=== PATIENT | female | born 1960 | race Caucasian/White ===

== ENCOUNTER 2016-09-21 16:37 | Inpatient (IN) | payer OTHER ==
[~2016-09-21] VITALS: Ht 144.8 cm; Wt 57.6 kg
--- NOTE | 2016-09-21 16:49 | NUR ---
PT TO ED FOR L SIDED CHEST PAIN THAT BEGAN TODAY, REPORTS HX OF [place] APPROX 8 YEARS AGO. REPORTING CHEST PAIN RADIATES FROM L CHEST INTO ARM. DENIES SOB, BAUM, UNABLE TO IDENTIFY IF ANYTHING MAKES PAIN BETTER OR WORSE.
--- NOTE | 2016-09-21 16:53 | NUR ---
PT TO [facility] RM 17 FABY ELLIS INTO EVALUATE PATIENT
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
--- NOTE | 2016-09-21 17:30 | NUR ---
IV ACCESS ESTABLISHED, #20 RW LABS DRAWN/SENT (SST X 2, LAVENDAR, BLUE X 2 TOP TUBES SENT)
--- NOTE | 2016-09-21 17:39 | NUR ---
PT MEDICATED WITH ASA 243 MG (ALREADY TOOK 81 MG ASA AT HOME) ALSO MEDICATED WITH SL NITRO X 1, B/P 155/71, HR 86 AND PAIN LEVEL 5/10 PRIOR TO RECEIVING SAME. JUANITA FROM RT AT BEDSIDE FOR NEB TREATMENT.
[2016-09-21 17:45] LABS: ABSOLUTE BASOPHIL COUNT 0.2 /CUMM (0.0-0.2); ABSOLUTE EOSINOPHIL COUNT 0.2 /CUMM (0.0-0.7); ABSOLUTE LYMPH COUNT 2.8 /CUMM (1.2-3.4); ABSOLUTE MONOCYTE COUNT 0.6 /CUMM (0.10-0.60); BASOPHIL % 1.3 % (0.0-2.0); GRANULOCYTE % 67.6 % (42.2-75.2); HEMATOCRIT 35.5 % (37-47); MEAN CORPUSCULAR HGB 30.3 PG (27.0-31.0); MEAN CORPUSCULAR HGB CONC 33.6 G/DL (33.0-37.0); MEAN CORPUSCULAR VOLUME 90.2 FL (81.0-99.0); MEAN PLATELET VOLUME 7.4 FL (7.4-10.4); PLATELET COUNT 334 /CUMM (130-400); RBC DISTRIBUTION WIDTH 12.7 % (11.5-14.5); RED BLOOD CELL CT 3.94 /CUMM (4.20-5.40); WHITE BLOOD CELL COUNT 11.8 /CUMM (4.8-10.8)
[2016-09-21 18:06] LABS: PT 11.1 SEC (9.4-12.5); PTT 33 SEC (25-37)
--- NOTE | 2016-09-21 18:27 | NUR ---
FABY ELLIS AT BEDSIDE
[2016-09-21] MEDS ORDERED: LOVAZA1 G1 PO (18:30)
[2016-09-21] MEDS ORDERED: ASPIRIN EC81 M1 PO (18:30)
[2016-09-21] MEDS ORDERED: FLUOXETINE HCL40 M1 PO (18:30)
[2016-09-21] MEDS ORDERED: DULOXETINE HCL30 MG PO (18:31)
[2016-09-21] MEDS ORDERED: ATORVASTATIN CA40 M1 PO (18:31)
[2016-09-21] MEDS ORDERED: MINIPRESS5 MG PO (18:32)
[2016-09-21] MEDS ORDERED: HYDROXYZINE PA100 M1 PO (18:32)
[2016-09-21] MEDS ORDERED: GABAPENTIN300 M2 PO (18:32)
[2016-09-21] MEDS ORDERED: PREMPRO 0.625-1 EAC1 PO (18:32)
[2016-09-21] MEDS ORDERED: SUBOXONE 4 MG-1 EACH SL (18:33)
[2016-09-21] MEDS ORDERED: NICOTINE GUM4 MG PO (18:33)
[2016-09-21] MEDS ORDERED: VITAMIN B-121000 MC3 PO (18:34)
[2016-09-21] MEDS ORDERED: ALIVE WOMEN'S1 EAC1 PO (18:34)
[2016-09-21] MEDS ORDERED: VITAMIN D31000 UNI1 PO (18:34)
[2016-09-21] MEDS ORDERED: ANTIOXIDANT SO1 EAC1 PO (18:35)
[2016-09-21] MEDS ORDERED: MELATONIN5 M5 PO (18:35)
--- NOTE | 2016-09-21 18:38 | NUR ---
PT MEDICATED WITH 2ND SL NITRO PER ORDERS FABY ELLIS PAIN LEVEL 5/10, HR 92, B/P 140/65 PRIOR TO RECEIVING NITRO
--- NOTE | 2016-09-21 18:43 | NUR ---
HEART HEALTHY TRAY ORDERED AT THIS TIME, SPOKE WITH KLEBER IN [facility].
--- NOTE | 2016-09-21 18:46 | RADIOLOGY REPORT ---
EXAMINATION: CHEST 1 VIEW CLINICAL INFORMATION: Cough, chest pain. COMPARISON: None. TECHNIQUE: An AP view of the chest is provided. FINDINGS: The cardiac silhouette is not enlarged. The mediastinal and hilar contours are unremarkable. There are neither pleural effusions nor pneumothoraces. There is mild atelectasis at the left lung base. There are no consolidations. Partially visualized is cervical spine fusion hardware. The osseous structures are otherwise unremarkable. IMPRESSION: No consolidations. Mild atelectasis at the left lung base.
--- NOTE | 2016-09-21 19:20 | NUR ---
PT PROVIDED WITH MEAL TRAY PER OK BY FABY
--- NOTE | 2016-09-21 19:47 | NUR ---
BED ASSIGNMENT 185-2
--- NOTE | 2016-09-21 20:08 | History & Physical ---
General Information and HPI Allergies/Medications Allergies: Coded Allergies: No Known Allergies (09/21/16) Home Med list Aspirin (Ecotrin*) 81 MG TABLET.DR 1 TAB PO DAILY HEART/BLOOD (Reported) Atorvastatin Calcium 40 MG TABLET 1 TAB PO QAM CHOLESTEROL (Reported) Beta-Carotene(A) W-C & E/Min (Antioxidant Softgel) 1 EACH CAPSULE 1 CAP PO DAILY SUPPLEMENT (Reported) Buprenorphine HCl/Naloxone HCl (Suboxone 4 MG-1 MG Sl Film) 4 MG-1 MG FILM 1 STR SL BID MENTAL HEALTH/CHRONIC PAIN (Reported) Cholecalciferol (Vitamin D3) (Vitamin D3) (Unknown Strength) CAPSULE (Unknown Dose) PO DAILY SUPPLEMENT (Reported) Cyanocobalamin (Vitamin B-12) (Unknown Strength) TABLET (Unknown Dose) PO DAILY SUPPLEMENT (Reported) Duloxetine HCl 30 MG CAPSULE.DR 90 MG PO DAILY MENTAL HEALTH/NERVE PAIN ( Reported) Estrogen,Con/M-Progest Acet (Prempro 0.625-2.5 MG Tablet) 0.625 MG-2.5 MG TABLET 1 TAB PO DAILY HRT (Reported) Fluoxetine HCl 40 MG CAPSULE 1 CAP PO QAM DEPRESSION/ANXIETY (Reported) Gabapentin 300 MG CAPSULE 2 CAP PO QHS PTSD (Reported) Hydroxyzine Pamoate 100 MG CAPSULE 1 CAP PO QPM SLEEP (Reported) Melatonin (Unknown Strength) CAPSULE (Unknown Dose) PO DAILY SUPPLEMENT ( Reported) Multivit/Iron/FA/K/Herb No.244 (Alive Women's Energy Mv Tablet) 18 MG IRON-400 MCG-80 MCG TABLET 1 TAB PO DAILY SUPPLEMENT (Reported) Nicotine Polacrilex (Nicotine Gum) 4 MG GUM 1 GUM PO PRN SMOKING CESSATION ( Reported) Elida-3 Acid Ethyl Esters (Lovaza) 1 GRAM CAPSULE 2 CAP PO BID CHOLESTEROL ( Reported) Prazosin HCl (Minipress) 5 MG CAPSULE 1 CAP PO QPM NIGHTMARES (Reported) Past History Travel History Traveled to [place] past 21 day No Medical History Cardiovascular: myocardial infarction Surgical History Surgical History: non-contributory Past Family/Social History Psychosocial History ETOH Use: denies use Illicit Drug Use: denies illicit drug use Core Measures/Miscellaneous Severe Sepsis Severe Sepsis Present: No Septic Shock Septic Shock Present: No
--- NOTE | 2016-09-21 20:42 | NUR ---
HOUSE STAFF AT BEDSIDE
--- NOTE | 2016-09-21 21:14 | NUR ---
REPORT GIVEN TO SAMIR Blackmon TELE
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
[2016-09-21 21:57] VITALS: BP 130/70
[2016-09-22 01:44] LABS: PTT 46 SEC (25-37)
--- NOTE | 2016-09-22 05:57 | PN- Housestaff ---
Subjective Follow-up For: - Unstable Angina Tele-Events Since Last Visit: Normal sinus rhythm heart rate 63-83, no overnight events. Subjective: The patient was comfortable, but appeared very tearful. Vitals were stable overnight. Did not have any other complaints. She was kept nothing by mouth in anticipation of a cardiac cath. After discussing with Dr. Watson, diet has been advanced. Discussed with nuclear imaging, discontinued beta blockers, and caffeine. Nothing by mouth after midnight, for a possible stress nuclear imaging. Review of Systems Constitutional: Reports: see HPI. Objective Last 24 Hrs of Vital Signs/I&O Vital Signs Date Time Temp Pulse Resp B/P Pulse O2 O2 Flow FiO2 Ox Delivery Rate 09/21 215 98.3 80 20 130/70 96 Room Air 09/21 1847 96 20 127/61 93 Room Air 09/21 1838 97.5 92 20 140/65 94 Room Air 09/21 1745 96 20 146/70 98 Aerosol Mask 09/21 1740 86 20 155/71 98 Room Air 09/21 1739 94 09/21 1731 Room Air Room Air 09/21 1647 98.0 91 14 162/84 95 Room Air Intake & Output 09/22 0800 09/22 0000 09/21 1600 Intake Total 210 Output Total Balance 210 Intake, IV 30 Intake, Oral 180 Patient 127 lb Weight Physical Exam General Appearance: No Acute Distress Other Physical Findings: General Exam: AAOx3, No acute distress, Skin: No rashes, no breakdown HEENT: PERRLA, EOMI Neck: Supple, No JVD No cervical lymphadenopathy CVS: Reg Rate, Normal S1,S2, No MGR Resp: Normal air entry, no ronchi/rales Abdomen: Soft, No tenderness, Normal Bowel Sounds Neuro: Normal Speech, Strength 5/5 b/l x 4 extremities, Sensation intact, CN III -XII NL, Reflexes 2+ Extremities: No cyanosis, pedal edema Current Medications: Current Medications Sig/Miguel Start time Last Medication Dose Route Stop Time Status Admin Acetaminophen 650 MG Q6P PRN 09/21 2029 AC 09/21 PO 215 Albuterol Sulfate 3 ML ONCE ONE 09/21 1744 DC 09/21 INH 09/21 Aspirin 0 .STK-MED ONE 09/21 1738 DC PO Aspirin 243 MG ONCE ONE 09/21 1714 DC 09/21 PO 03/20 1716 1740 Aspirin Buffered 81 MG DAILY 09/22 1000 AC PO Atorvastatin Calcium 40 MG 1700 09/22 1700 AC PO Diphenhydramine HCl 25 MG Q6P PRN 09/21 2029 AC IV Heparin Sodium 1,700 UNIT ONCE ONE 09/22 0300 DC 09/22 (Porcine) IV 09/22 030 0245 Heparin Sodium 0 .STK-MED ONE 09/21 192 DC (Porcine) .ROUTE Heparin Sodium 4,000 UNIT ONCE ONE 09/21 184 DC 09/21 (Porcine) IV 09/21 184 1944 Heparin Sodium/ 0 .STK-MED ONE 09/21 192 DC Dextrose IV Heparin Sodium/ 25,000 UNIT Q24H 09/21 184 AC 09/21 Dextrose IV 194 Dextrose/Water 500 ML Hydroxyzine HCl 100 MG AT BEDTIME 09/21 2199 AC 09/22 PO 0226 Ipratropium Bruin 2.5 ML ONCE ONE 09/21 1745 DC 09/21 INH 09/21 1746 1739 Metoprolol Tartrate 25 MG BID 09/21 2199 AC 09/21 PO 2158 Morphine Sulfate 2 MG Q4P PRN 09/21 2030 AC 09/22 IV 0244 Nitroglycerin 1 GM Q6P PRN 09/21 2029 AC TOP Nitroglycerin 0.4 MG ONCE ONE 09/21 1830 DC 09/21 SL 09/21 183 1838 Nitroglycerin 0 .STK-MED ONE 09/21 1739 DC SL Nitroglycerin 0.4 MG ONCE ONE 09/21 1715 DC 09/21 SL 09/21 1716 1740 Oxycodone HCl 5 MG Q6P PRN 09/21 2029 AC PO Prochlorperazine 10 MG Q6P PRN 09/21 2030 AC IV Last 24 Hrs of Lab/Perico Results Last 24 Hrs of Labs/Mics: Laboratory Tests 09/22/16 0100: Troponin I < 0.01, APTT 46 H 09/21/16 2245: Urine Opiates Screen < 100.00, Methadone Screen 90, Barbiturate Screen < 60, Ur Phencyclidine Scrn < 6.00, Amphetamines Screen < 100, U Benzodiazepines Scrn < 85, Urine Cocaine Screen < 50, Urine Cannabis Screen < 5.00, Urinalysis LIGHT H , Urine Color YEL, Urine Clarity HAZY H, Urine pH 7.0, Ur Specific [place] 1.015, Urine Protein NEG, Urine Ketones NEG, Urine Nitrite NEG, Urine Bilirubin NEG, Urine Urobilinogen 0.2, Ur Leukocyte Esterase NEG, Ur Microscopic SEDIMENT EXAMINED, Urine RBC 5-10 H, Urine WBC 1-3 H, Ur Epithelial Cells FEW, Urine Bacteria MOD H, Urine Mucus FEW, Urine Hemoglobin TRACE-LYSED, Urine Glucose NEG 09/21/16 1725: Anion Gap 10, Estimated GFR > 60, BUN/Creatinine Ratio 20.0, Glucose 91, Calcium 9.5, Total Bilirubin 0.3, AST 31, ALT 44, Alkaline Phosphatase 95, Troponin I < 0.01, Total Protein 7.0, Albumin 4.2, Globulin 2.8, Albumin/Globulin Ratio 1.5, Cholesterol 115, PT 11.1, INR 1.06, APTT 33, D-Dimer < 200, CBC w Diff NO MAN DIFF REQ, RBC 3.94 L, MCV 90.2, MCH 30.3, RDW 12.7, MPV 7.4, Gran % 67.6, Lymphocytes % 23.9, Monocytes % 5.2, Eosinophils % 2.0, Basophils % 1.3, Absolute Granulocytes 8.0 H, Absolute Lymphocytes 2.8, Absolute Monocytes 0.6, Absolute Eosinophils 0.2, Absolute Basophils 0.2, PUBS MCHC 33.6 Assessment/Plan Assessment: Ms Sutherland is a 56-year-old woman who is a known smoker, with a history of coronary artery disease (myocardial infarction status post stent-type unknown), dyslipidemia is being evaluated for chest pain 1 day. At the time of admission, vitals-temperature 98.5, pulse rate 70, respiratory rate 18, blood pressure 120/74, pulse ox 95% on room air. Lab findings indicated WBC 11.8, hemoglobin 11.9, hematocrit 35.5. Electrolytes-within normal limits sodium 137, potassium 4.1, renal function-normal BUN 16, serum creatinine 0.8. Cardiac enzymes-troponins I 3 less than 0.01. Urine toxicology screen-negative. EKG-did not reveal any ST-T wave changes. Admission diagnosis: #1 acute coronary syndrome Below is the problem list and plan: #1 acute coronary syndrome-unstable angina. No EKG changes. Cardiac enzymes negative. Discontinue intravenous heparin, as the patient did not have any EKG changes or abnormal cardiac enzymes. As per the terrazzo tile maker, the patient might benefit from a cardiac stress test (likely with radioisotope). Continue nitroglycerin patch. Aspirin and a beta jacinto. Follow echocardiogram. The patient's terrazzo tile maker has been consulted for records. Hold beta jacinto overnight before the stress test. No caffeinated products. 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 Start duloxetine and Suboxone. #3 smoking cessation-discontinue nitroglycerin patch at this time. Problem List: 1. Unstable angina Pain Ratin Pain Location: Back Pain Goal: Pain 4 or less Pain Plan: Morphine Tomorrow's Labs & Rationales: CBC-to monitor for leukocytosis.
[2016-09-22 08:00] VITALS: BP 120/74
[2016-09-22 08:58] LABS: ABSOLUTE BASOPHIL COUNT 0 /CUMM (0.0-0.2); ABSOLUTE EOSINOPHIL COUNT 0.3 /CUMM (0.0-0.7); ABSOLUTE GRANULOCYTE CT 4.9 /CUMM (1.4-6.5); ABSOLUTE LYMPH COUNT 2.7 /CUMM (1.2-3.4); ABSOLUTE MONOCYTE COUNT 0.4 /CUMM (0.10-0.60); BASOPHIL % 0.3 % (0.0-2.0); EOSINOPHIL % 3.2 % (0-5); GRANULOCYTE % 58.8 % (42.2-75.2); HEMATOCRIT 36.2 % (37-47); MEAN CORPUSCULAR HGB 30.1 PG (27.0-31.0); MEAN CORPUSCULAR HGB CONC 33.5 G/DL (33.0-37.0); MEAN PLATELET VOLUME 7.4 FL (7.4-10.4); PLATELET COUNT 308 /CUMM (130-400); RBC DISTRIBUTION WIDTH 13.1 % (11.5-14.5); RED BLOOD CELL CT 4.02 /CUMM (4.20-5.40); WHITE BLOOD CELL COUNT 8.4 /CUMM (4.8-10.8)
[2016-09-22 09:16] LABS: PTT 44 SEC (25-37)
--- NOTE | 2016-09-22 11:06 | NUR ---
PATIENT CONTINUES TO C/O CHEST PAIN WITH BURNING SENSATION TO LEFT LOWER EXTREMITY. MEDICATED WITH ROXICODONE. PATIENT ALSO REPORTED HEADACHE 6/10 AND GIVEN TYLENOL 650MG PO. DENIES NAUSEA. ECHO COMPLETED. REMAINS ALERT AND ORIENTATED X3. DENIES DIZZINESS. INDEPENDENT OOB TO BATHROOM. WILL MONITOR.
--- NOTE | 2016-09-22 13:39 | Cons- Cardiology ---
General Information and HPI Consulting Request Date of Consult: 09/22/16 Requested By: ZE BAUMANN PhD,MAGY Desouza History of Present Illness: Lorna is a 56 year old female with history of dyslipidemia, coronary artery disease s/p AK with stent placement to her RCA 8 years ago and post traumatic stress disorder. She has been under increased stress as of late. Yesterday, this patient noted a severe, burning chest discomfort that radiated toward her jaw that was also associated with a left arm paresthesia. She also noted a right leg discomfort. This discomfort does not have a consistent exertional pattern and continues to some degree while at rest. There was some associated vomiting and diaphoresis. She also reports shortness of breath, although she nevertheless feels that she can keep herself physically active. Finally, this patient also reports episodes of lightheadedness and palpitations. The patient does not have any electocardiographic changes and ruled out for an AK by cardiac enzymes. Allergies/Medications Allergies: Coded Allergies: No Known Allergies (09/21/16) Home Med List: Aspirin (Ecotrin*) 81 MG TABLET.DR 1 TAB PO DAILY HEART/BLOOD (Reported) Atorvastatin Calcium 40 MG TABLET 1 TAB PO QAM CHOLESTEROL (Reported) Beta-Carotene(A) W-C & E/Min (Antioxidant Softgel) 1 EACH CAPSULE 1 CAP PO DAILY SUPPLEMENT (Reported) Buprenorphine HCl/Naloxone HCl (Suboxone 4 MG-1 MG Sl Film) 4 MG-1 MG FILM 1 STR SL BID MENTAL HEALTH/CHRONIC PAIN (Reported) Cholecalciferol (Vitamin D3) (Vitamin D3) (Unknown Strength) CAPSULE (Unknown Dose) PO DAILY SUPPLEMENT (Reported) Cyanocobalamin (Vitamin B-12) (Unknown Strength) TABLET (Unknown Dose) PO DAILY SUPPLEMENT (Reported) Duloxetine HCl 30 MG CAPSULE.DR 90 MG PO DAILY MENTAL HEALTH/NERVE PAIN ( Reported) Estrogen,Con/M-Progest Acet (Prempro 0.625-2.5 MG Tablet) 0.625 MG-2.5 MG TABLET 1 TAB PO DAILY HRT (Reported) Fluoxetine HCl 40 MG CAPSULE 1 CAP PO QAM DEPRESSION/ANXIETY (Reported) Gabapentin 300 MG CAPSULE 2 CAP PO QHS PTSD (Reported) Hydroxyzine Pamoate 100 MG CAPSULE 1 CAP PO QPM SLEEP (Reported) Melatonin (Unknown Strength) CAPSULE (Unknown Dose) PO DAILY SUPPLEMENT ( Reported) Multivit/Iron/FA/K/Herb No.244 (Alive Women's Energy Mv Tablet) 18 MG IRON-400 MCG-80 MCG TABLET 1 TAB PO DAILY SUPPLEMENT (Reported) Nicotine Polacrilex (Nicotine Gum) 4 MG GUM 1 GUM PO PRN SMOKING CESSATION ( Reported) [place]-3 Acid Ethyl Esters (Lovaza) 1 GRAM CAPSULE 2 CAP PO BID CHOLESTEROL ( Reported) Prazosin HCl (Minipress) 5 MG CAPSULE 1 CAP PO QPM NIGHTMARES (Reported) Review of Systems Review of Systems: stress and anxiety Past History Travel History Traveled to [place] past 21 day No Medical History Blood Transfusion Hx: No Neurological: NONE EENT: NONE Cardiovascular: CAD (s/p stent to RCA), hyperlipidemia, myocardial infarction, STENTS Respiratory: NONE Gastrointestinal: NONE Hepatic: NONE Renal: NONE Musculoskeletal: arthritis Psychiatric: anxiety, insomnia, PTSD Endocrine: NONE Blood Disorders: NONE Cancer(s): NONE 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 Father: [place] in 30's Mother: in 60's/ COPD Psychosocial History Where Do You Live? Home Services at Home: None Smoking Status: Current Everyday Smoker (1ppd) ETOH Use: denies use, history of alcohol abuse Illicit Drug Use: denies illicit drug use, history of opiate abuse Functional Ability ADLs Independent: dressing, eating, toileting, bathing. Ambulation: independent IADLs Independent: shopping, housework, finances, food prep, telephone, transportation , medication admin. Exam & Diagnostic Data Vital Signs and I&O Vital Signs Date Time Temp Pulse Resp B/P Pulse O2 O2 Flow FiO2 Ox Delivery Rate 09/22 1000 81 140/70 09/22 0800 98.5 70 18 120/74 95 Room Air 09/21 2157 98.3 80 20 130/70 96 Room Air 09/21 1847 96 20 127/61 93 Room Air 09/21 1838 97.5 92 20 140/65 94 Room Air 09/21 1745 96 20 146/70 98 Aerosol Mask 09/21 1740 86 20 155/71 98 Room Air 09/21 1739 94 09/21 1731 Room Air Room Air 09/21 1647 98.0 91 14 162/84 95 Room Air Intake & Output 09/22 1600 09/22 0800 09/22 0000 09/21 1600 09/21 0800 09/21 0000 Intake Total 150.8 210 Output Total Balance 150.8 210 Intake, IV 100.8 30 Intake, Oral 50 180 Patient 127 lb Weight Physical Exam: General: WD/ WN female in NAD; alert and oriented x 3 HEENT: NC/AT, PERRL, EOMI, clear oropharynx Neck: no JVD, no carotid bruit Heart: RRR without murmur Lungs: no crackles or wheezing with upper airway congestion Abdomen: soft, NT, +ve bowel sounds Extremties: no edema Diagnostic Data EKG Results sinus rhythm Assessment/Plan Assessment/Plan * This patient has experienced prolonged and somewhat atypical chest discomfort without electrocardiographic changes or a rise in cardiac enzymes. In consideration of her prior history of coronary artery disease and continued risk factors we will risk stratify this patient with a treadmill nuclear stress test. We will also obtain an echocardiogram. * Continue aspirin, Atorvastatin, Metoprolol and prazosin. Heparin can be stopped. Discontinue nicotine. Continue NTG paste for now. * I suspect that the patient's shortness of breath is due to mild COPD related smoking. Consult Acknowledgment - Thank you for your consult request.
[2016-09-22] MEDS ORDERED: DULOXETINE HCL60 MG PO (14:32)
--- NOTE | 2016-09-22 14:44 | ECHOCARDIOGRAM REPORT ---
ISAIAH SAMUEL Age: 56 : 1960 Gender: F Exam Date: 09/22/2016 10:02 Exam Location: [address] [facility] Ht (in): 60 Wt (lb): 95 BSA: 1.35 BP: 140 / 70 Ordering Physician: DELMY COYLE MD Referring Physician: DELMY COYLE MD Technologist: Morales Adams [facility] Room Number: 185-1 Indications: CHEST TRAUMA Rhythm: Sinus Technical Quality: Fair FINDINGS Left Ventricle Normal size left ventricle. Normal left ventricular wall thickness. Normal left ventricular wall motion. Normal left ventricular ejection fraction visually estimated at 55%. Abnormal relaxation filling pattern of the left ventricle for age (stage 1 diastolic dysfunction). Right Ventricle Normal right ventricular size and function. Right Atrium Normal right atrial size. Left Atrium Normal left atrial size. Mitral Valve Mild mitral annular calcification. Mitral valve mildly thickened. Trace mitral regurgitation. Aortic Valve Aortic valve not well visualized, grossly normal. No aortic valve stenosis or regurgitation. Tricuspid Valve Structurally normal tricuspid valve. No tricuspid regurgitation. Unable to estimate the right ventricular systolic pressure. Pulmonic Valve Pulmonic valve not well visualized. No pulmonic regurgitation. Pericardium No pericardial effusion. Great Vessels Normal size aortic root. CONCLUSIONS Normal size left ventricle. Normal left ventricular wall thickness. Normal left ventricular wall motion. Normal left ventricular ejection fraction visually estimated at 55%. Abnormal relaxation filling pattern of the left ventricle for age (stage 1 diastolic dysfunction). Normal right ventricular size and function. Normal atrial size. Trace mitral regurgitation. Unable to estimate the right ventricular systolic pressure. Rafa Tracy M.D. (Electronically Signed) Final Date: 22 September 2016 14:43 MEASUREMENTS (Male / Female) Normal Values 2D ECHO LV Diastolic Diameter PLAX 4.5 cm 4.2 - 5.9 / 3.9 - 5.3 cm LV Systolic Diameter PLAX 3.2 cm 2.1 - 4.0 cm LV Fractional Shortening PLAX 28.9 % 25 - 46 % LV Ejection Fraction 2D Teich 55.7 % IVS Diastolic Thickness 0.7 cm LVPW Diastolic Thickness 0.8 cm LV Relative Wall Thickness 0.3 RV Internal Dim ED PLAX 3.1 cm 1.9 - 3.8 cm LVOT Diameter 1.7 cm Aortic Root Diameter 2.8 cm LA Systolic Diameter LX 3.1 cm 3.0 - 4.0 / 2.7 - 3.8 cm DOPPLER MV Peak Velocity 97.9 cm/s MV Peak Gradient 3.8 mmHg MV Mean Velocity 59.1 cm/s MV Mean Gradient 2.0 mmHg Mitral E Point Velocity 65.6 cm/s Mitral A Point Velocity 94.8 cm/s Mitral E to A Ratio 0.7 MV PHT Velocity 96.4 cm/s MV Deceleration [place] 615.0 cm/s MV Pressure Half Time 47.0 ms MV Area PHT 4.7 cm MV Deceleration Time 141.0 ms PV Peak Velocity 81.3 cm/s PV Peak Gradient 2.6 mmHg PV Mean Velocity 58.7 cm/s PV Mean Gradient 2.0 mmHg PV Velocity Time Integral 18.6 cm LV E' Lateral Velocity 13.0 cm/s Mitral E to LV E' Lateral Ratio 5.0 LV E' Septal Velocity 8.4 cm/s Mitral E to LV E' Septal Ratio 7.8
[2016-09-22 15:50] VITALS: BP 118/72
--- NOTE | 2016-09-22 17:10 | Discharge Summary ---
Visit Information Visit Dates Admission Date: 09/21/16 Discharge Date: 09/23/16 Hospital Course Course Attending Physician: ZE BAUMANN PhD,MAGY Desouza Primary Care Physician: ALEXANDER CUNHA Hospital Course: Ms Sutherland is a 56-year-old woman who is a known smoker, with a history of coronary artery disease (myocardial infarction status post stent RCA 2011-type unknown), PTSD dyslipidemia is being evaluated for hest discomfort that radiated to the jaw that was also associated with a left arm paresthesia 1 day. At the time of admission, vitals-temperature 98.5, pulse rate 70, respiratory rate 18, blood pressure 120/74, pulse ox 95% on room air. Lab findings indicated WBC 11.8, hemoglobin 11.9, hematocrit 35.5. Electrolytes-within normal limits sodium 137, potassium 4.1, renal function-normal BUN 16, serum creatinine 0.8. Cardiac enzymes-troponins I 3 less than 0.01. Urine toxicology screen-negative. EKG-did not reveal any ST-T wave changes. Admission diagnosis: #1 Rule out acute coronary syndrome Below is the problem list and plan: #1 acute coronary syndrome-unstable angina. No EKG changes were noted. Cardiac enzymes negative. She was initially started on intravenous heparin which was discontinued after following serial electrocardiograms and cardiac enzymes. She was started on aspirin and Aspirin and a beta jacinto, and statin. Exercise stress test with radioisotope did not reveal any abnormality. Normal left ventricle or motion and ejection fraction. The patient did not have any symptoms, during the stay in the hospital. Vitals remain stable, and did not have any arrhythmias on telemetry. #2 history of anxiety, depression-patient did not have any suicidal ideation or homicidal ideation. She was treated with her home dose of duloxetine and Suboxone. #3 smoking cessation-smoking cessation counseling was undertaken actively. Explained to her the risks involved. Since the patient has long-standing history of smoking, a competent of COPD is suspected. Allergies: Coded Allergies: No Known Allergies (09/21/16) Pertinent Lab Results: RAD - XRY-PORTABLE CHEST XRAY 09/21/16-1703 No consolidations. Mild atelectasis at the left lung base. --- CARD - ECHOCARDIOGRAM 09/22/16-0800 Normal size left ventricle. Normal left ventricular wall thickness. Normal left ventricular wall motion. Normal left ventricular ejection fraction visually estimated at 55%. Abnormal relaxation filling pattern of the left ventricle for age (stage 1 diastolic dysfunction). Normal right ventricular size and function. Normal atrial size. Trace mitral regurgitation. Unable to estimate the right ventricular systolic pressure. EXERCISE STRESS AND RESTING SPECT MYOCARDIAL PERFUSION IMAGING STUDY WITH GATED SPECT IMAGES- Normal exercise stress and resting myocardial perfusion study with normal left ventricular wall motion and ejection fraction. Disposition Summary Disposition Principal Diagnosis: Acute coronary syndrome Additional Diagnosis: Smoking Discharge Disposition: home or self care Discharge Instructions General Discharge Information Code Status: Full Code Patient's Diet: Heart healthy diet Patient's Activity: As tolerated Follow-Up Instructions/Appts: - Please follow-up with your engagement executive within 1-2 weeks of discharge. - Please follow-up with your primary care provider within one to 2 weeks of discharge. Medications at Discharge Discharge Medications: Stop taking the following medications: Nicotine Polacrilex (Nicotine Gum) 4 MG GUM ORAL as needed for SMOKING CESSATION Qty = 170 Continue taking these medications: Aspirin (Ecotrin*) 81 MG TABLET. 1 Tablet ORAL DAILY Comments: Last Taken: 09/23/16 Time: 8 am [place]-3 Acid Ethyl Esters (Lovaza) 1 GRAM CAPSULE 2 Capsule ORAL TWICE DAILY Comments: NOT GIVEN IN HOSPITAL Duloxetine HCl (Duloxetine HCl) 30 MG CAPSULE. 30 Milligram ORAL BEDTIME Qty = 30 Comments: Last Taken: 09/22/16 Time: 9 PM Atorvastatin Calcium (Atorvastatin Calcium) 40 MG TABLET 1 Tablet ORAL Every Morning Qty = 30 Comments: Last Taken: 09/23/16 Time: 5 pm Hydroxyzine Pamoate (Hydroxyzine Pamoate) 100 MG CAPSULE 1 Capsule ORAL Every night Qty = 30 Comments: Last Taken: 09/22/16 Time: 9 PM Prazosin HCl (Minipress) 5 MG CAPSULE 1 Capsule ORAL Every night Qty = 30 Comments: NOT GIVEN IN HOSPITAL Gabapentin (Gabapentin) 300 MG CAPSULE 1 Capsule ORAL TAKE AT BEDTIME Qty = 30 Comments: Last Taken: 09/22/16 Time: 9 PM Estrogen,Con/M-Progest Acet (Prempro 0.625-2.5 MG Tablet) 0.625 MG-2.5 MG TABLET 1 Tablet ORAL DAILY Qty = 28 Comments: NOT GIVEN IN HOSPITAL Buprenorphine HCl/Naloxone HCl (Suboxone 4 MG-1 MG Sl Film) 4 MG-1 MG FILM 1 Strip SUBLINGUAL TWICE DAILY Qty = 56 Comments: Last Taken: 09/23/16 Time: 8 AM Multivit/Iron/FA/K/Herb No.244 (Alive Women's Energy Mv Tablet) 18 MG IRON-400 MCG-80 MCG TABLET 1 Tablet ORAL DAILY Comments: NOT GIVEN IN HOSPITAL Cyanocobalamin (Vitamin B-12) (Unknown Strength) TABLET Unknown Dose ORAL DAILY Comments: NOT GIVEN IN HOSPITAL Cholecalciferol (Vitamin D3) (Vitamin D3) (Unknown Strength) CAPSULE Unknown Dose ORAL DAILY Comments: NOT GIVEN IN HOSPITAL Melatonin (Melatonin) (Unknown Strength) CAPSULE Unknown Dose ORAL DAILY Comments: Last Taken: 09/22/16 Time: 9 PM Beta-Carotene(A) W-C & E/Min (Antioxidant Softgel) 1 EACH CAPSULE 1 Capsule ORAL DAILY Comments: NOT GIVEN IN HOSPITAL Duloxetine HCl (Duloxetine HCl) 60 MG CAPSULE.DR 1 Capsule ORAL DAILY Comments: NOT GIVEN IN HOSPITAL Copies To: ALEXANDER CUNHA
[2016-09-22 20:58] VITALS: BP 142/78
[2016-09-22 22:51] VITALS: BP 102/68
--- NOTE | 2016-09-23 07:10 | PN- Housestaff ---
Subjective Follow-up For: - chest pain Tele-Events Since Last Visit: NSR. No overnight events. Subjective: Pt comfortable. No complaints. She had chest discomfort last night, after she felt more anxious. Discussed with her about the management plan, and she was agreeable. Vitals were stable overnight. She was afebrile. Review of Systems Constitutional: Reports: see HPI. Objective Last 24 Hrs of Vital Signs/I&O Vital Signs Date Time Temp Pulse Resp B/P Pulse O2 O2 Flow FiO2 Ox Delivery Rate 09/22 2251 98.1 66 20 102/68 94 Room Air 09/22 2102 75 142/78 09/22 2057 75 142/78 09/22 1600 92 Room Air 09/22 1550 97.5 62 18 118/72 92 Room Air 09/22 1000 81 140/70 09/22 0800 98.5 70 18 120/74 95 Room Air Intake & Output 09/23 0800 09/23 0000 09/22 1600 Intake Total 680 538 Output Total Balance 680 538 Intake, IV 138 Intake, Oral 680 400 Physical Exam General Appearance: No Acute Distress Skin: No Breakdown HEENT: PERRLA, EOMI Neck: No JVD, No thryomegaly Lymphatic: Cervical nl Cardiovascular: Normal S1, Normal S2 Lungs: Normal Air Movement Abdomen: Soft, No Tenderness Neurological: Normal Speech, Strength at 5/5 X4 Ext, Normal Tone Extremities: No Cyanosis, No Edema Vascular: Pulses Symmetrical Current Medications: Current Medications Sig/Miguel Start time Last Medication Dose Route Stop Time Status Admin Acetaminophen 650 MG .STK-MED ONE 09/22 2056 DC PO 09/22 2057 Acetaminophen 325 MG .STK-MED ONE 09/22 1510 DC PO 09/22 1511 Acetaminophen 325 MG .STK-MED ONE 09/22 1505 DC PO 09/22 1506 Acetaminophen 650 MG .STK-MED ONE 09/22 1101 DC PO 09/22 1102 Acetaminophen 650 MG Q6P PRN 09/21 2030 AC 09/22 PO 210 Aspirin Buffered 81 MG DAILY 09/22 1000 AC 09/22 PO 1000 Atorvastatin Calcium 40 MG 1700 09/22 1700 AC 09/22 PO 1712 Buprenorphine/ 2 TAB 0800 09/23 0800 DC Naloxone SL Buprenorphine/ 2 TAB 0800,09/22 2000 AC 09/22 Naloxone SL 1712 Diphenhydramine HCl 25 MG Q6P PRN 09/21 2029 AC IV Duloxetine HCl 30 MG AT BEDTIME 09/22 2199 AC 09/22 PO 210 Gabapentin 300 MG AT BEDTIME 09/22 2199 AC 09/22 PO 210 Heparin Sodium 3,450 UNIT ONCE ONE 09/22 1030 DC 09/22 (Porcine) IV 09/22 1031 1000 Heparin Sodium/ 25,000 UNIT Q24H 09/21 1845 DC 09/21 Dextrose IV 1944 Dextrose/Water 500 ML Hydroxyzine HCl 100 MG AT BEDTIME 09/21 2199 AC 09/22 PO 210 Melatonin 5 MG AT BEDTIME 09/22 2199 AC 09/22 PO 210 Metoprolol Tartrate 25 MG BID 09/21 2199 DC 09/22 PO 09/23 0000 2102 Morphine Sulfate 2 MG Q4P PRN 09/21 2029 AC 09/23 IV 0656 Nitroglycerin 1 GM Q6P PRN 09/21 2029 AC 09/22 TOP 0613 Oxycodone HCl 5 MG Q6P PRN 09/21 2029 AC 09/22 PO 2102 Patient Medication 1 ED .STK-MED ONE 09/22 1359 [place] Teaching ED 09/22 1400 Prochlorperazine 10 MG Q6P PRN 09/21 2029 AC IV Last 24 Hrs of Lab/Perico Results Last 24 Hrs of Labs/Mics: Laboratory Tests 09/23/16 0630: Sodium Pending, Potassium Pending, Chloride Pending, Carbon Dioxide Pending, Anion Gap Pending, BUN Pending, Creatinine Pending, BUN/Creatinine Ratio Pending , Magnesium Pending, CBC w Diff Pending, WBC Pending, RBC Pending, Hgb Pending, Hct Pending, MCV Pending, MCH Pending, RDW Pending, Plt Count Pending, MPV Pending, PUBS MCHC Pending 09/22/16 1600: APTT Cancelled 09/22/16 0830: Anion Gap 8, Estimated GFR > 60, BUN/Creatinine Ratio 20.0, Magnesium 2.0, Troponin I < 0.01, APTT 44 H, CBC w Diff NO MAN DIFF REQ, RBC 4.02 L, MCV 90.0 , MCH 30.1, RDW 13.1, MPV 7.4, Gran % 58.8, Lymphocytes % 32.5, Monocytes % 5.2, Eosinophils % 3.2, Basophils % 0.3, Absolute Granulocytes 4.9, Absolute Lymphocytes 2.7, Absolute Monocytes 0.4, Absolute Eosinophils 0.3, Absolute Basophils 0, PUBS MCHC 33.5 Assessment/Plan Assessment: Ms Sutherland is a 56-year-old woman who is a known smoker, with a history of coronary artery disease (myocardial infarction status post stent-type unknown), dyslipidemia is being evaluated for chest pain 1 day. Admission diagnosis: #1 acute coronary syndrome Below is the problem list and plan: #1 acute coronary syndrome-unstable angina. No EKG changes. Cardiac enzymes negative. IV heparin has been discontinued. Continue aspirin and beta jacinto( discontinued for the stress test). As per the options trader, the patient might benefit from a cardiac stress test (likely with radioisotope). Continue nitroglycerin patch. Aspirin and a beta jacinto. Follow echocardiogram. The patient's options trader has been consulted for records. #2 history of anxiety, depression-no suicidal ideation or homicidal ideation. Start duloxetine and Suboxone. #3 smoking cessation-discontinue nitroglycerin patch at this time. Problem List: 1. Unstable angina Pain Ratin Pain Location: chest discomfort Pain Goal: Pain 4 or less Pain Plan: tylenol prn Tomorrow's Labs & Rationales: no labs necessary at this time.
[2016-09-23 07:57] VITALS: BP 124/80
[2016-09-23 07:59] LABS: ABSOLUTE BASOPHIL COUNT 0 /CUMM (0.0-0.2); ABSOLUTE EOSINOPHIL COUNT 0.4 /CUMM (0.0-0.7); ABSOLUTE GRANULOCYTE CT 5.7 /CUMM (1.4-6.5); ABSOLUTE LYMPH COUNT 2.7 /CUMM (1.2-3.4); ABSOLUTE MONOCYTE COUNT 0.6 /CUMM (0.10-0.60); BASOPHIL % 0.4 % (0.0-2.0); EOSINOPHIL % 3.9 % (0-5); GRANULOCYTE % 60.2 % (42.2-75.2); MEAN CORPUSCULAR HGB 29.6 PG (27.0-31.0); MEAN CORPUSCULAR HGB CONC 32.5 G/DL (33.0-37.0); MEAN PLATELET VOLUME 7.6 FL (7.4-10.4); PLATELET COUNT 329 /CUMM (130-400); RED BLOOD CELL CT 4.17 /CUMM (4.20-5.40); WHITE BLOOD CELL COUNT 9.4 /CUMM (4.8-10.8)
--- NOTE | 2016-09-23 13:48 | Patient Discharge Instructions ---
Discharge Instructions General Discharge Information You were seen/treated for: - chest pain You had these procedures: - stress test Watch for these problems: - chest pain, shortness of breath. Special Instructions: - Please follow-up with your tobacco stemmer machine within 1-2 weeks of discharge. - Please follow-up with your primary care provider within one to 2 weeks of discharge. Acute Coronary Syndrome Inclusion Criteria At DC or during hospital stay patient has or had the following: ACS DIAGNOSIS No Discharge Core Measures Meds if any: Prescribed or Continued at Discharge Meds if any: NOT Prescribed or Continued at Discharge Congestive Heart Failure Inclusion Criteria At DC or during hospital stay patient has or had the following: CHF DIAGNOSIS No Discharge Core Measures Meds if any: Prescribed or Continued at Discharge Meds if any: NOT Prescribed or Continued at Discharge Cerebrovascular accident Inclusion Criteria At DC or during hospital stay patient has or had the following: CVA/TIA Diagnosis No Discharge Core Measures Meds if any: Prescribed or Continued at Discharge Meds if any: NOT Prescribed or Continued at Discharge Venous thromboembolism Inclusion Criteria VTE Diagnosis No VTE Type NONE VTE Confirmed by (Test) NONE Discharge Core Measures - Per Current guidelines, there needs to be overlap - treatment for the first 5 days of Warfarin therapy. - If discharged on Warfarin prior to 5 days of - overlap therapy, the patient will need to be - assessed for post discharge needs including - *Post discharge parental anticoagulation - *Warfarin and/or parental anticoagulation education - *Follow up date to check INR post discharge At least 5 days overlap therapy as Inpatient No Meds if any: Prescribed or Continued at Discharge Note: Overlap Therapy is Warfarin and Anticoagulant Meds if any: NOT Prescribed or Continued at Discharge
[2016-09-23 15:49] VITALS: BP 130/82
--- NOTE | 2016-09-23 16:30 | NUCLEAR MEDICINE REPORT ---
EXERCISE STRESS AND RESTING SPECT MYOCARDIAL PERFUSION IMAGING STUDY WITH GATED SPECT IMAGES: CLINICAL INDICATION: Atypical chest pain. PROCEDURE: Regional myocardial perfusion was assessed using a 1 day protocol. Stress images were obtained on 09/23/2016 following the intravenous administration of 18.5 mCi Tc 99m Myoview. Stress was performed using the standard Armani protocol, with the patient reaching a peak heart rate of 85% maximal predicted heart rate. Rest images were obtained 09/23/2016 following the intravenous administration of 31.2 mCi Technetium 99m Myoview. Single photon emission tomographic (SPECT) images were obtained. SPECT images were acquired in a 64 x 64 matrix of 64 projections over 180 degrees. These were reconstructed into standard short axis, horizontal and vertical long axis cardiac projections. FINDINGS: The post stress images demonstrate the left ventricular chamber to be normal in size. There is homogeneous distribution of activity in the left ventricular myocardium with no regions of abnormally decreased activity noted. The resting images also demonstrate homogeneous distribution of activity in the left ventricular myocardium, and are not significantly changed from the post stress images. The stress images were obtained using a gated SPECT technique, which permits visualization of wall motion and calculation of the left ventricular ejection fraction. No left ventricular wall motion abnormalities are noted on the stress study. The calculated left ventricular ejection fraction is 74% on the stress study. No previous study is available for comparison. IMPRESSION: Normal exercise stress and resting myocardial perfusion study with normal left ventricular wall motion and ejection fraction.
--- NOTE | 2016-09-23 18:11 | PN- Cardiology ---
Subjective Subjective: Feels improved overall and denies any symptoms at this time. Objective Vital Signs and I&Os Vital Signs Date Time Temp Pulse Resp B/P Pulse O2 O2 Flow FiO2 Ox Delivery Rate 09/23 1549 98.2 77 18 130/82 94 Room Air 09/23 0757 98.0 82 18 124/80 94 Room Air 09/22 2251 98.1 66 20 102/68 94 Room Air 09/22 210 75 142/78 09/22 2057 75 142/78 Intake & Output 09/23 1600 09/23 0800 09/23 0000 09/22 1600 09/22 0800 09/22 0000 Intake Total 240 680 538 150.8 210 Output Total Balance 240 680 538 150.8 210 Intake, IV 138 100.8 30 Intake, Oral 240 680 400 50 180 Patient 127 lb Weight Physical Exam: Well-developed, well-nourished middle-aged female in no acute distress. X Vital signs: See above. Lungs: Mild bilateral inspiratory wheeze and otherwise clear. Heart: S1, S2 with no murmur, gallop, or rub appreciated. PMI fifth ICS at [facility]. Abdomen: Soft, nontender, positive bowel sounds. Extremities: No edema. Current Medications: Current Medications Sig/Miguel Start time Last Medication Dose Route Stop Time Status Admin Acetaminophen 650 MG .STK-MED ONE 09/22 2056 DC PO 09/22 2057 Acetaminophen 650 MG Q6P PRN 09/21 2029 AC 09/23 PO 1700 Aspirin Buffered 81 MG DAILY 09/22 1000 AC 09/23 PO 0759 Atorvastatin Calcium 40 MG 1700 09/22 170 AC 09/23 PO 1657 Buprenorphine/ 2 TAB 0800,09/22 AC 09/23 Naloxone SL 0800 Diphenhydramine HCl 25 MG Q6P PRN 09/21 2029 AC IV Duloxetine HCl 30 MG AT BEDTIME 09/22 2199 AC 09/22 PO 210 Gabapentin 300 MG AT BEDTIME 09/22 2199 AC 09/22 PO 210 Heparin Sodium 5,000 UNIT Q8 09/23 0758 AC 09/23 (Porcine) SC 1457 Hydroxyzine HCl 100 MG AT BEDTIME 09/21 2199 AC 09/22 PO 210 Melatonin 5 MG AT BEDTIME 09/22 2199 AC 09/22 PO 210 Metoprolol Tartrate 25 MG BID 09/21 2199 DC 09/22 PO 09/23 0000 2102 Morphine Sulfate 2 MG Q4P PRN 09/21 2029 AC 09/23 IV 1451 Nitroglycerin 1 GM Q6P PRN 09/21 2029 AC 09/22 TOP 0613 Oxycodone HCl 5 MG Q6P PRN 09/21 2029 AC 09/23 PO 1700 Prazosin HCl 5 MG QPM 09/23 2199 AC PO Prochlorperazine 10 MG Q6P PRN 09/21 2029 AC IV Results Last 48 Hrs of Labs/Mics: Laboratory Tests 09/23/16 0630: Anion Gap 8, Estimated GFR > 60, BUN/Creatinine Ratio 21.4, Magnesium 2.1, CBC w Diff NO MAN DIFF REQ, RBC 4.17 L, MCV 91.0, MCH 29.6, RDW 13.0, MPV 7.6, Gran % 60.2, Lymphocytes % 29.1, Monocytes % 6.4, Eosinophils % 3.9, Basophils % 0.4, Absolute Granulocytes 5.7, Absolute Lymphocytes 2.7, Absolute Monocytes 0.6, Absolute Eosinophils 0.4, Absolute Basophils 0, PUBS MCHC 32.5 L 09/22/16 1600: APTT Cancelled 09/22/16 0830: Anion Gap 8, Estimated GFR > 60, BUN/Creatinine Ratio 20.0, Magnesium 2.0, Troponin I < 0.01, APTT 44 H, CBC w Diff NO MAN DIFF REQ, RBC 4.02 L, MCV 90.0 , MCH 30.1, RDW 13.1, MPV 7.4, Gran % 58.8, Lymphocytes % 32.5, Monocytes % 5.2, Eosinophils % 3.2, Basophils % 0.3, Absolute Granulocytes 4.9, Absolute Lymphocytes 2.7, Absolute Monocytes 0.4, Absolute Eosinophils 0.3, Absolute Basophils 0, PUBS MCHC 33.5 09/22/16 0100: Troponin I < 0.01, APTT 46 H 09/21/16 2245: Urine Opiates Screen < 100.00, Methadone Screen 90, Barbiturate Screen < 60, Ur Phencyclidine Scrn < 6.00, Amphetamines Screen < 100, U Benzodiazepines Scrn < 85, Urine Cocaine Screen < 50, Urine Cannabis Screen < 5.00, Urinalysis LIGHT H , Urine Color YEL, Urine Clarity HAZY H, Urine pH 7.0, Ur Specific [place] 1.015, Urine Protein NEG, Urine Ketones NEG, Urine Nitrite NEG, Urine Bilirubin NEG, Urine Urobilinogen 0.2, Ur Leukocyte Esterase NEG, Ur Microscopic SEDIMENT EXAMINED, Urine RBC 5-10 H, Urine WBC 1-3 H, Ur Epithelial Cells FEW, Urine Bacteria MOD H, Urine Mucus FEW, Urine Hemoglobin TRACE-LYSED, Urine Glucose NEG Recent Imaging Studies: Nuclear treadmill stress test (09/23/2016) normal exercise stress and resting myocardial perfusion study with normal left ventricular wall motion and ejection fraction. Assessment/Plan Assessment/Plan Ms. Sutherland is feeling improved and is without any further atypical chest discomfort. There was no evidence of myocardial necrosis by serial cardiac enzyme determinations, acute electrocardiographic changes, or stress nuclear evidence of ischemia. Based on the above, she is cleared for discharge from a cardiac standpoint. The plan will be for further outpatient evaluation and management with Dr. Watson in the near future. Continue telemetry? No
== END 2016-09-23 18:55 | DRG 198 ==
LOC: ENRESERVDT → ENRESERVTM → ERH 16:37 → 1NO 18:41 → ERHI 18:41 → 1NO 21:51
PROVIDERS: Internal Medicine Endocrinology, Diabetes & Metabolism; Internal Medicine Hematology & Oncology; Physician Assistant; ADMIT Internal Medicine Interventional Cardiology
DX: I25.110 Atherosclerotic heart disease of native coronary artery with unstable angina pectoris (principal); F17.200 Nicotine dependence, unspecified, uncomplicated; F41.8 Other specified anxiety disorders; F43.10 Post-traumatic stress disorder, unspecified; Z82.49 Family history of ischemic heart disease and other diseases of the circulatory system; Z95.5 Presence of coronary angioplasty implant and graft; Z79.890 Hormone replacement therapy; E78.5 Hyperlipidemia, unspecified
CPT/HCPCS: 1NSP; 36415; 78452; 80307; 81001; 82436; 93005; 93010; 93016; 93017; 93306; 96374; 99291; A9502; J0780; J1200; J1644; J3490; J7060